=== PATIENT | male | born 1970 | race Caucasian/White ===

== ENCOUNTER 2018-08-09 11:01 | Emergency (ER) | payer OTHER ==
[~2018-08-09] VITALS: Ht 165.1 cm; Wt 86.2 kg
[~2018-08-09 11:01] MED LIST: ? ANTIBIOTIC; ? CHOLESTEROL MED; AZIT250 PO; AZIT500 PO; Bactrim Ds Tab1 EACH PO; CEPH500 PO; CODGUAEL PO; DOXY100 PO; Flomax0.4 MG PO; HYDACE5 PO; IBUP600 PO; IBUP800 PO; Keflex500 MG PO; LORA.5; LORA1 PO; METO5A PO; OXYACE5T PO; PROCODE120 PO; RXHYDACE PO; SULTRIDS PO; [UNRECOGNIZED DRUG - REMARK]
[2018-08-09] MEDS ORDERED: Bactrim Ds Tab1 EACH PO (11:41)
== END 2018-08-09 11:46 | disposition home or self-care (01) ==
LOC: ER 11:01
DX: L03.114 Cellulitis of left upper limb (principal); Z88.0 Allergy status to penicillin; J45.909 Unspecified asthma, uncomplicated; E03.9 Hypothyroidism, unspecified; E11.9 Type 2 diabetes mellitus without complications; Z87.891 Personal history of nicotine dependence
CPT/HCPCS: 99282

== ENCOUNTER 2018-08-11 10:56 | Emergency (ER) | payer OTHER ==
[~2018-08-11] VITALS: Ht 165.1 cm; Wt 88.5 kg
[2018-08-11] MEDS ORDERED: Keflex500 MG PO (12:12)
== END 2018-08-11 12:15 | disposition home or self-care (01) ==
LOC: ER 10:56
DX: L02.212 Cutaneous abscess of back [any part, except buttock and flank] (principal); E11.9 Type 2 diabetes mellitus without complications; F17.200 Nicotine dependence, unspecified, uncomplicated; Z88.0 Allergy status to penicillin
CPT/HCPCS: 10061; 99282-25

== ENCOUNTER 2018-08-12 10:27 | Emergency (ER) | payer OTHER ==
[~2018-08-12] VITALS: Ht 165.1 cm; Wt 88.5 kg
== END 2018-08-12 11:27 | disposition home or self-care (01) ==
LOC: ER 10:27
DX: Z48.817 Encounter for surgical aftercare following surgery on the skin and subcutaneous tissue (principal); E11.9 Type 2 diabetes mellitus without complications; J45.909 Unspecified asthma, uncomplicated; F17.200 Nicotine dependence, unspecified, uncomplicated; Z88.0 Allergy status to penicillin
CPT/HCPCS: 99282

== ENCOUNTER 2018-08-13 10:16 | Emergency (ER) | payer OTHER ==
[~2018-08-13] VITALS: Ht 165.1 cm; Wt 88.5 kg
== END 2018-08-13 12:15 | disposition home or self-care (01) ==
LOC: ER 10:16
DX: Z48.817 Encounter for surgical aftercare following surgery on the skin and subcutaneous tissue (principal); F17.200 Nicotine dependence, unspecified, uncomplicated; E11.9 Type 2 diabetes mellitus without complications; J45.909 Unspecified asthma, uncomplicated
CPT/HCPCS: 99283-25

== ENCOUNTER 2018-08-15 09:12 | Emergency (ER) | payer OTHER ==
[~2018-08-15] VITALS: Ht 165.1 cm; Wt 88.5 kg
== END 2018-08-15 10:23 | disposition home or self-care (01) ==
LOC: ER 09:12
DX: Z48.817 Encounter for surgical aftercare following surgery on the skin and subcutaneous tissue (principal); J45.909 Unspecified asthma, uncomplicated; E11.9 Type 2 diabetes mellitus without complications; F17.200 Nicotine dependence, unspecified, uncomplicated; Z88.0 Allergy status to penicillin
CPT/HCPCS: 99282

== ENCOUNTER 2021-03-16 16:00 | Emergency (ER) | payer OTHER ==
[~2021-03-16] VITALS: Ht 165.1 cm; Wt 99.8 kg
[2021-03-16 16:40] LABS: BASOPHILS ABSOLUTE AUTO 0.06 K/mm3 (0.00-0.23); BASOPHILS PERCENT AUTO 1 % (0-2); EOSINOPHILS ABSOLUTE AUTO 0.11 K/mm3 (0.00-0.68); EOSINOPHILS PERCENT AUTO 1 % (0-6); Hematocrit 41.3 % (37.0-53.0); Hemoglobin 13.8 g/dL (13.5-17.5); IMMATURE GRAN ABSOLUTE AUTO 0.03 K/mm3 (0.00-0.10); IMMATURE GRAN PERCENT AUTO 0 % (0-1); LYMPHOCYTES PERCENT AUTO 15 % (21-46); MONOCYTES ABSOLUTE AUTO 0.46 K/mm3 (0.16-1.47); MONOCYTES PERCENT AUTO 6 % (4-13); Mean Corpuscular HGB 30.3 pg (26.0-34.0); Mean Corpuscular HGB Conc 33.4 g/dL (31.5-36.5); Mean Corpuscular Volume 91 fL (80-100); Mean Platelet Volume 9.9 fL (9.1-12.4); NEUTROPHILS ABSOLUTE AUTO 6.13 K/mm3 (1.96-9.15); NEUTROPHILS PERCENT AUTO 77 % (41-73); Platelet Count 276 K/mm3 (150-400); RDW Coefficient Variation 12.8 % (11.7-14.2); Red Blood Cell Count 4.55 M/mm3 (4.30-5.90); White Blood Cell Count 7.99 K/mm3 (4.00-11.30)
[2021-03-16 17:00] LABS: Alanine Aminotransfer (ALT/SGP 36 U/L (12-78); Albumin, Blood 3.7 g/dL (3.4-5.0); Albumin/Globulin Ratio 1.1 (0.8-1.8); Alk Phos 81 U/L (50-136); Anion Gap 5 mmol/L (6-16); Aspartate Aminotrans (AST/SGOT 30 U/L (12-37); Bilirubin, Total 0.3 mg/dL (0.1-1.0); Blood Urea Nitrogen 13 mg/dL (8-24); Bun/Creatinine Ratio 14.2 (12.0-20.0); CO2, Blood 28 mmol/L (21-32); Calcium, Blood 8.6 mg/dL (8.5-10.1); Chloride, Blood 106 mmol/L (98-108); Creatinine, Blood 0.91 mg/dL (0.60-1.20); Globulin, Blood 3.5 g/dL (2.2-4.0); Glomerular Filtration Rate >60 (60-); Glucose, Blood 113 mg/dL (70-99); Potassium, Blood 3.6 mmol/L (3.5-5.5); Sodium, Blood 139 mmol/L (136-145); Total Protein, Blood 7.2 g/dL (6.4-8.2)
[2021-03-16 19:27] LABS: U Amphetamine Screen DETECTED; U Barbituate Screen Not Detected; U Benzodiazapine Screen Not Detected; U Buprenorphine Screen Not Detected; U Cannabinoids Screen DETECTED; U Cocaine Screen Not Detected; U Methadone Screen Not Detected; U Methamphetamine Screen DETECTED; U Opiates Screen Not Detected; U Oxycodone Screen Not Detected; U Phencyclidine Screen Not Detected; U Propoxyphene Screen Not Detected
== END 2021-03-16 22:07 | disposition home or self-care (01) ==
LOC: ER 16:00
PROVIDERS: Physician Assistant
DX: R55 Syncope and collapse (principal); F15.10 Other stimulant abuse, uncomplicated
CPT/HCPCS: 36415; 80053; 85025; 93005; 93010; 99284-25; G0480